=== PATIENT | female | born 1930 | race Caucasian/White ===

== ENCOUNTER 2016-12-27 | Outpatient (CLI) | payer MEDICARE, OTHER | END 2016-12-27 13:39 | disposition critical access hospital (66) | CPT/HCPCS: A0425; A0429 ==

== ENCOUNTER 2016-12-27 | Emergency (ER) | payer MEDICARE, OTHER | END 2016-12-27 14:52 | disposition home or self-care (01) ==

== ENCOUNTER 2017-04-03 09:58 | Outpatient (CLI) | payer MEDICARE, OTHER ==
--- NOTE | 2017-04-04 04:18 | MRI Report ---
EXAM: MRI LUMBAR SPINE WITHOUT CONTRAST EXAM DATE: 04/03/2017 11:46 AM. CLINICAL HISTORY: Segmental and somatic dysfunction of lumbar region. COMPARISON: None. TECHNIQUE: Multiplanar, multisequence T1-weighted and fluid-sensitive sequences of the lumbar spine f rom T10 to S2 without contrast. Other: None. FINDINGS: Spinal Cord: The conus terminates at T12-L1. No signal abnormality in the visualized spinal cord. Alignment: 33 degrees of dextroscoliosis is present with the apex at L2-L3. Additionally, 6 mm of lef t lateral subluxation is noted at T12-L1 and 7 mm of right lateral subluxation is present at L3-L4. O n sagittal images, retrolisthesis at L1-L2 and L2-L3 measures 23 mm. Bone Marrow: Five vlw-cbm-gmhjfam lumbar vertebral bodies are assumed. Mild type I endplate changes a re present at T12-L1. Type II Modic endplate changes are present at L1-L2, L2-L3, and L4-L5. Disk Levels/Facets: T10-T11: The foramina and spinal canal are patent on sagittal images. T11-T12: The foramina and spinal canal are patent on sagittal images. T12-L1: A mild disk bulge is present with mild bilateral facet arthropathy. This results in mild bila teral foraminal narrowing and mild spinal canal stenosis. L1-L2: A mild disk bulge is present with moderate left facet arthropathy. This results in mild left f oraminal narrowing and mild spinal canal stenosis. L2-L3: A mild disk bulge is present with ligamentum flavum infolding and moderate bilateral facet art hropathy. This results in severe left and mild right foraminal narrowing and mild spinal canal stenos is. L3-L4: There is a mild disk bulge with ligamentum flavum infolding and facet arthropathy resulting in mild spinal canal stenosis. There is mild bilateral foraminal narrowing, right greater than left. L4-L5: A mild disk bulge with bilateral facet arthropathy and ligamentum flavum infolding result in m ild spinal canal stenosis. There is moderate right foraminal narrowing. The left foramen is patent. L5-S1: A mild disk bulge is present with moderate bilateral facet arthropathy. This results in modera te right and mild left foraminal narrowing and minimal spinal canal stenosis. 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 Musculature: There is moderate diffuse fatty atrophy of the posterior paraspinal muscles without intr amuscular edema. Other: The visualized pelvic cavity is unremarkable. IMPRESSION: 1. Normal conus medullaris and cauda equina. 2. Moderate lumbar dextroscoliosis with superimposed moderate multilevel degenerative changes. 3. However, no high-grade spinal canal stenosis is appreciated. 4. Mild type I Modic endplate changes at T12-L1. Comment: The following findings are so common in adults without low back pain that while we report th eir presence, they must be interpreted with caution and in the context of the clinical situation. (Re nathan Galarza et al, Spine 2001) Prevalence of findings in patients without low back pain: Disk degeneration (any evidence): 92% Disk desiccation/T2 signal loss: 83% Disk height loss: 56% Disk bulge: 64% Disk protrusion: 32% Annular tear/high intensity zone: 38% [facility] Referring Provider Line: [phone] SITE ID: [id number]
== END 2017-04-03 09:59 | disposition home or self-care (01) ==
LOC: DI 09:58
PROVIDERS: ATTEND Family Medicine
DX: M51.36 Other intervertebral disc degeneration, lumbar region (principal); M12.88 Other specific arthropathies, not elsewhere classified, other specified site
CPT/HCPCS: 72148

== ENCOUNTER 2017-07-17 10:40 | Outpatient (CLI) | payer MEDICARE, OTHER ==
[2017-07-17 18:55] LABS: BASOPHILS # (AUTO) 0.1 10^3/uL (0.0-0.1); EOSINOPHILS # (AUTO) 0.3 10^3/uL (0.0-0.7); EOSINOPHILS % (AUTO) 4.8 %; HCT - HEMATOCRIT 29.8 % (37.0-47.0); HGB - HEMOGLOBIN 9.2 g/dL (12.0-16.0); LYMPHOCYTES # (AUTO) 1.1 10^3/uL (1.5-3.5); LYMPHOCYTES % (AUTO) 20.2 %; MEAN CORPUSCULAR HEMOGLOBIN 23.8 pg (27.0-31.0); MEAN CORPUSCULAR HGB CONC 30.8 g/dL (32.0-36.0); MEAN CORPUSCULAR VOLUME 77.3 fL (81.0-99.0); MEAN PLATELET VOLUME 7.5 fL (7.9-10.8); MONOCYTES # (AUTO) 0.8 10^3/uL (0.0-1.0); MONOCYTES % (AUTO) 14.6 %; NEUTROPHILS # (AUTO) 3.2 10^3/uL (1.5-6.6); NEUTROPHILS % (AUTO) 59.4 %; RED BLOOD COUNT 3.85 10^6/uL (4.20-5.40); RED CELL DISTRIBUTION WIDTH 17.8 % (12.0-15.0); UNCORRECTED WHITE BLOOD COUNT 5.4 x10^3/uL; WHITE BLOOD COUNT 5.4 x10^3/uL (4.8-10.8)
[2017-07-17 19:05] LABS: ALBUMIN/GLOBULIN RATIO 1.4 (1.0-2.2); BILIRUBIN,TOTAL 0.4 mg/dL (0.2-1.0); BUN - BLOOD UREA NITROGEN 23 mg/dL (6-20); CALCIUM 9.3 mg/dL (8.5-10.3); CARBON DIOXIDE - CO2 25 mmol/L (21-32); CHLORIDE 104 mmol/L (101-111); GFR - MDRD 53 (>89); GLUCOSE 84 mg/dL (70-100); POTASSIUM 4.7 mmol/L (3.5-5.0); SODIUM 137 mmol/L (135-145)
== END 2017-07-17 10:41 ==
LOC: LAB.WCP 10:40
PROVIDERS: ATTEND Family Medicine
DX: R42 Dizziness and giddiness (principal)
CPT/HCPCS: 36415; 80053; 84443; 85025

== ENCOUNTER 2017-07-24 10:51 | Outpatient (CLI) | payer MEDICARE, OTHER | END 2017-07-24 10:52 | disposition home or self-care (01) | LOC: DI 10:51 | PROVIDERS: ATTEND Family Medicine | DX: R42 Dizziness and giddiness (principal); I51.7 Cardiomegaly | CPT/HCPCS: 93306 ==

== ENCOUNTER 2017-09-16 08:00 | Outpatient (CLI) | payer MEDICARE, OTHER ==
[2017-09-16 19:40] LABS: BASOPHILS % (AUTO) 0.6 %; EOSINOPHILS # (AUTO) 0.2 10^3/uL (0.0-0.7); HCT - HEMATOCRIT 35.2 % (37.0-47.0); HGB - HEMOGLOBIN 11.3 g/dL (12.0-16.0); LYMPHOCYTES # (AUTO) 1.6 10^3/uL (1.5-3.5); LYMPHOCYTES % (AUTO) 26.1 %; MEAN CORPUSCULAR HEMOGLOBIN 27.7 pg (27.0-31.0); MEAN CORPUSCULAR HGB CONC 32.1 g/dL (32.0-36.0); MEAN CORPUSCULAR VOLUME 86.3 fL (81.0-99.0); MEAN PLATELET VOLUME 8.1 fL (7.9-10.8); MONOCYTES # (AUTO) 0.8 10^3/uL (0.0-1.0); MONOCYTES % (AUTO) 12.2 %; NEUTROPHILS # (AUTO) 3.5 10^3/uL (1.5-6.6); NEUTROPHILS % (AUTO) 57.1 %; NUCLEATED RED BLOOD CELLS AUTO 0.1 /100WBC; RED BLOOD COUNT 4.08 10^6/uL (4.20-5.40); RED CELL DISTRIBUTION WIDTH 22.9 % (12.0-15.0); UNCORRECTED WHITE BLOOD COUNT 6.2 x10^3/uL; WHITE BLOOD COUNT 6.2 x10^3/uL (4.8-10.8)
[2017-09-16 20:04] LABS: IRON 15 ug/dL (28-170); TOTAL IRON BINDING CAPACITY 402 ug/dL (250-450); TRANSFERRIN 287 mg/dL (192-382)
== END 2017-09-16 08:01 | disposition home or self-care (01) ==
LOC: LAB.WCP 08:00
PROVIDERS: ATTEND Family Medicine
DX: K92.2 Gastrointestinal hemorrhage, unspecified (principal)
CPT/HCPCS: 36415; 82728; 83540; 84466; 85025

== ENCOUNTER 2018-03-19 10:16 | Outpatient (CLI) | payer MEDICARE, OTHER | END 2018-03-19 10:17 | disposition critical access hospital (66) | LOC: EMS 10:16 | PROVIDERS: ATTEND Surgery | DX: M25.552 Pain in left hip (principal); M25.522 Pain in left elbow; W01.0XXA Fall on same level from slipping, tripping and stumbling without subsequent striking against object, initial encounter; Y93.01 Activity, walking, marching and hiking; Y92.098 Other place in other non-institutional residence as the place of occurrence of the external cause | CPT/HCPCS: A0425; A0429 ==

== ENCOUNTER 2018-03-19 10:40 | Emergency (ER) | payer MEDICARE, OTHER ==
[2018-03-19] MEDS ORDERED: BACITRACIN OINT TOP ONE (11:03)
--- NOTE | 2018-03-19 12:01 | XRAY Report ---
EXAM: LEFT ELBOW RADIOGRAPHY EXAM DATE: 03/19/2018 11:49 AM. CLINICAL HISTORY: Fell onto concrete. Elbow pain. COMPARISON: None. TECHNIQUE: 3 views. FINDINGS: Bones: No acute fracture or bony lesion. No bony erosions. Crescentic calcific density along the medi al humeral epicondyle is likely the result of enthesopathy. Joints: Normal alignment. No elbow effusion no dislocation. Soft Tissues: Soft tissue edema along the dorsal left elbow. IMPRESSION: 1. No acute osseous abnormalities. [facility] Referring Provider Line: [phone] SITE ID: [id number]
--- NOTE | 2018-03-19 12:06 | XRAY Preliminary Report ---
Exam: XR HIP W/PELVIS 2-3V LT IMPRESSION: 1. Comminuted displaced left superior and inferior pubic rami fractures. Definitive sacral fracture n ot identified radiographically. [facility] SITE ID: [id number]
--- NOTE | 2018-03-19 12:07 | XRAY Report ---
EXAM: LEFT HIP AND PELVIS RADIOGRAPHY EXAM DATE: 03/19/2018 11:49 AM. HISTORY: Fell on concrete c/o groin pain. COMPARISONS: None. TECHNIQUE: 1 view of the pelvis and 1 view of the hip. FINDINGS: Bones: Comminuted displaced medial left superior pubic rami and inferior pubic rami fractures with ad jacent comminuted fragments. Fracture extends into the pubis symphysis. No definite sacral fracture i dentified radiographically. Joints: No dislocation. Mild degenerative changes of both hip joints. Degenerative changes of the lum bar spine. Soft Tissues: Soft tissue edema. IMPRESSION: 1. Comminuted displaced left superior and inferior pubic rami fractures. Definitive sacral fracture n ot identified radiographically. [facility] Referring Provider Line: [phone] SITE ID: [id number]
[2018-03-19] MEDS ORDERED: HYDROcod/ACETAM 5/325 MG TABLET PO STA (12:18)
--- NOTE | 2018-03-19 12:20 | ED Physician Documentation ---
PD HPI LOWER EXT INJURY - Stated complaint Stated Complaint: FALL/ HIP AND ELBOW PX - Chief complaint Chief Complaint: Ext Problem - History obtained from History obtained from: Patient - History of Present Illness PD HPI LOW EXT INJURY LOCATION: Other (She was turning around to help somebody with something and fell down on her left hip and left elbow. She has not tried to walk since. Pain is moderate. No head or neck injury.) Review of Systems Ten Systems: 10 systems reviewed and negative Constitutional: reports: Reviewed and negative Cardiac: reports: Reviewed and negative Respiratory: reports: Reviewed and negative PD PAST MEDICAL HISTORY - Past Medical History Endocrine/Autoimmune: HyPOthyroidism - Past Surgical History Past Surgical History: Yes /[employer]: Hysterectomy - Present Medications Home Medications: Ambulatory Orders Medication Instructions Recorded Confirmed HYDROcod/ACETAM 5/325 [[place] 5/325] 1 - 2 ea PO Q6H PRN #15 tablet 03/19/18 Levothyroxine [Synthroid] 0 03/19/18 Zolpidem [Ambien] 0 03/19/18 - Allergies Allergies/Adverse Reactions: Allergies Allergy/AdvReac Type Severity Reaction Status Date / Time Sulfa (Sulfonamide Allergy Unknown Verified 03/19/18 10:50 Antibiotics) - Living Situation Living Arrangement: reports: Assisted living - Social History Does the pt smoke?: No Smoking Status: Never smoker Does the pt drink ETOH?: Yes Does the pt have substance abuse?: No - Family History Family history: reports: Non contributory - Immunizations Immunizations are current?: Yes - POLST Patient has POLST: No PD ED PE NORMAL - Vitals Vital signs reviewed: Yes - General General: Alert and oriented X 3, No acute distress - HEENT HEENT: PERRL, EOMI - Neck Neck: Supple, no meningeal sign, No bony TTP - Cardiac Cardiac: RRR, No murmur - Respiratory Respiratory: No respiratory distress, Clear bilaterally - Abdomen Abdomen: Normal bowel sounds, Soft, Non tender - Back Back: No CVA TTP, No spinal TTP - Derm Derm: Normal color, Warm and dry - Extremities Extremities: Other (There is a abrasion over the olecranon on the left, but good range of motion and no tenderness. The left hip is nontender and she does have mild pain with internal and external rotation. The remainder of her extremities are nontender.) - Neuro Neuro: Alert and oriented X 3, Normal speech - Psych Psych: Normal mood, Normal affect Results - Vitals Vitals: Vital Signs - 24 hr 03/19/18 03/19/18 10:43 12:58 Temperature 36.6 C 36.3 C L Heart Rate 66 70 Respiratory 14 18 Rate Blood Pressure 164/89 H 147/57 H O2 Saturation 100 97 Oxygen O2 Source Room air - Rads (name of study) X-rays of the left hip and left elbow Radiology: EMP read contemporaneously (Left elbow is normal, the left hip x-ray demonstrates a comminuted and displaced left superior and inferior pubic rami fracture.) PD MEDICAL DECISION MAKING - ED course ED course: 87-year-old woman with fall, has a pelvic fracture. She was unable to walk or bear weight here. She did not really want to come in the hospital, I asked social work to see her and see if a higher level of care could be arranged as an outpatient. She is in independent living now. She called [facility], they are able to accommodate her at a higher level of care. On-call orthopedics, Dr. De Luna viewed the x-rays and agreed that it was a nonoperative fracture. I also spoke with her physician, Dr. Mireles, we discussed anticoagulation, she shared with me that she has had a GI bleed in the past and recommended only a baby aspirin a day. Departure - Departure Disposition: 01 Home, Self Care Clinical Impression: Pelvic fracture Qualifiers: Encounter type: initial encounter Pelvic bone location: pubis Sublocation of pubis: unspecified portion of pubis Fracture type: closed Laterality: left Qualified Code(s): S32.502A - Unspecified fracture of left pubis, initial encounter for closed fracture Condition: Good Record reviewed to determine appropriate education?: Yes Instructions: ED Fx Pelvis Prescriptions: HYDROcod/ACETAM 5/325 [[place] 5/325] 1 - 2 ea PO Q6H PRN #15 tablet PRN Reason: Pain Comments: Call your doctor to arrange a follow-up appointment, make the next available appointment. In the interim, return anytime if worse or if new symptoms develop. Your blood pressure was elevated today on check into the emergency department. This does not mean that you have hypertension, it is a common phenomenon to come to the emergency department and have elevated blood pressure. I recommend that you see your primary care physician within the week to have it rechecked when you are feeling better. Do not drink or drive while taking narcotic pain medication. Note that many narcotic pain relievers also contain Tylenol/acetaminophen. Please ensure that your total dose of acetaminophen from all sources does not exceed 3 g (3000 mg) per day. You may get constipated while on this medication. Take a stool softener such as Colace twice a day while you are on it. Also add an [id number]-[id number] laxative such as senna or MiraLAX on any day that you do not have a bowel movement. If you received a narcotic pain medication or sedative while in the emergency department, do not drive for the next 24 hours. Take a baby aspirin per at once a day.
[2018-03-19 15:44] VITALS: BP 146/88
== END 2018-03-19 15:30 | disposition home or self-care (01) ==
LOC: EDUNIT# → ED 10:40
DX: S32.592A Other specified fracture of left pubis, initial encounter for closed fracture (principal); S50.312A Abrasion of left elbow, initial encounter; W01.0XXA Fall on same level from slipping, tripping and stumbling without subsequent striking against object, initial encounter; Y92.099 Unspecified place in other non-institutional residence as the place of occurrence of the external cause; E03.9 Hypothyroidism, unspecified; R03.0 Elevated blood-pressure reading, without diagnosis of hypertension
CPT/HCPCS: 73080; 73502; 99283; 99284; A9270